=== PATIENT | female | born 1960 | race African-American/Black ===

== ENCOUNTER 2022-10-25 18:03 | Inpatient (IN) | payer OTHER ==
[2022-10-25 18:42] VITALS: BMI 17.6
[2022-10-25] MEDS ORDERED: chlordiazePOXIDE HCL 25 MG CAPSULE PO PRN (20:07)
[2022-10-25] MEDS ORDERED: LOPERAMIDE HCL 2 MG CAPSULE PO PRN (20:07)
[2022-10-25] MEDS ORDERED: IBUPROFEN 400 MG TABLET (FP) PO PRN (20:07)
[2022-10-25] MEDS ORDERED: methaDONE HCL 10 MG TABLET (FOR DETOX USE ONLY) PO ONE (20:07)
[2022-10-25] MEDS ORDERED: BISMUTH SUBSALICYLATE 524 MG/30 ML PO PRN (20:07)
[2022-10-25] MEDS ORDERED: MAG HYDROX/AL HYDROX/SIMETH 30 ML UNIT-DOSE CUP PO PRN (20:07)
[2022-10-25] MEDS ORDERED: POLYETHYLENE GLYCOL (HEALTHYLAX) 3350 17 GM PACKET PO PRN (20:07)
[2022-10-25] MEDS ORDERED: ONDANSETRON *ODT* 4 MG TABLET SL PRN (20:07)
[2022-10-25] MEDS ORDERED: hydrOXYzine PAMOATE 25 MG CAPSULE (FP) PO PRN (20:07)
[2022-10-25] MEDS ORDERED: IBUPROFEN 600 MG TABLET (FP) PO PRN (20:07)
[2022-10-25] MEDS ORDERED: NALOXONE HCL (KLOXXADO) 8 MG SPRAY NS PRN (20:07)
[2022-10-25] MEDS ORDERED: ACETAMINOPHEN 325 MG TABLET (FP) PO PRN ×2 (20:07)
[2022-10-25] MEDS ORDERED: NICOTINE 10 MG CARTRIDGE (INHALER) IH PRN (20:07)
[2022-10-25] MEDS ORDERED: DICYCLOMINE HCL 10 MG CAPSULE PO PRN (20:07)
[2022-10-25] MEDS ORDERED: MAGNESIUM HYDROX 2400MG/30ML ORAL SUSPENSION 30 ML CUP PO PRN (20:07)
[2022-10-25] MEDS ORDERED: BENZOCAINE/MENTHOL (CHLORASEPTIC ) LOZENGE MM PRN (20:07)
[2022-10-25] MEDS ORDERED: methaDONE HCL 10 MG TABLET (FOR DETOX USE ONLY) ONE (20:23)
[2022-10-25] MEDS ORDERED: cloNIDine HCL 0.1 MG TABLET ONE (20:35)
[2022-10-25] MEDS: cloNIDine HCL 0.1 MG TABLET PO PRN (20:50)
[2022-10-25] MEDS: MELATONIN 5 MG TABLETS PO SCH (22:35)
[2022-10-25] MEDS: THIAMINE HCL 100 MG TABLET (FP) PO SCH (22:35)
[2022-10-25] MEDS: METHOCARBAMOL 500 MG TABLET PO PRN (22:36)
[2022-10-25] MEDS: chlordiazePOXIDE HCL 25 MG CAPSULE PO SCH (22:36)
[2022-10-26] MEDS: chlordiazePOXIDE HCL 25 MG CAPSULE PO SCH ×4 (06:00→22:51)
[2022-10-26] MEDS: PRENATAL VITAMINS W/ FOLIC ACID TABLET (FP) PO SCH (10:20)
[2022-10-26] MEDS: cloNIDine HCL 0.1 MG TABLET PO PRN (20:51)
[2022-10-26] MEDS: MELATONIN 5 MG TABLETS PO SCH (22:50)
[2022-10-26] MEDS: METHOCARBAMOL 500 MG TABLET PO PRN (22:51)
[2022-10-26] MEDS: THIAMINE HCL 100 MG TABLET (FP) PO SCH (22:51)
[2022-10-27] MEDS: chlordiazePOXIDE HCL 25 MG CAPSULE PO SCH ×4 (05:43→22:35)
[2022-10-27] MEDS: cloNIDine HCL 0.1 MG TABLET PO PRN ×2 (07:40→22:34)
[2022-10-27] MEDS ORDERED: methaDONE HCL 10 MG TABLET (FOR DETOX USE ONLY) PO ONE (10:00)
[2022-10-27] MEDS: PRENATAL VITAMINS W/ FOLIC ACID TABLET (FP) PO SCH (10:11)
[2022-10-27 12:20] LABS: HEMATOCRIT 34.6 % (32.4-45.2); HEMOGLOBIN 11.7 GM/dL (10.7-15.3); MCHC 33.9 g/dl (32.0-36.0); MEAN CELL VOLUME 94.4 fl (80-96); MEAN PLT VOLUME 9.3 fl (7.5-11.1); PLATELET COUNT 193 10^3/uL (134-434); RBC 3.66 M/mm3 (3.60-5.2); RDW 12.4 % (11.6-15.6); WHITE BLOOD COUNT 3.7 K/mm3 (4.0-10.0)
[2022-10-27 12:47] LABS: CALCIUM 8.9 mg/dL (8.5-10.1)
[2022-10-27 12:48] LABS: ALBUMIN 2.6 g/dl (3.4-5.0); BLOOD UREA NITROGEN 21.7 mg/dL (7-18)
[2022-10-27 12:51] LABS: CREATININE 1.2 mg/dL (0.55-1.3)
[2022-10-27 12:52] LABS: BILIRUBIN,TOTAL 0.3 mg/dL (0.2-1); TOT PROT 6.4 g/dl (6.4-8.2)
[2022-10-27] MEDS: MELATONIN 5 MG TABLETS PO SCH (22:34)
[2022-10-27] MEDS: METHOCARBAMOL 500 MG TABLET PO PRN (22:34)
[2022-10-27] MEDS: THIAMINE HCL 100 MG TABLET (FP) PO SCH (22:34)
[2022-10-28] MEDS: chlordiazePOXIDE HCL 10 MG CAPSULE PO SCH ×3 (07:35→17:58)
[2022-10-28] MEDS: PRENATAL VITAMINS W/ FOLIC ACID TABLET (FP) PO SCH (09:57)
[2022-10-28] MEDS ORDERED: cloNIDine HCL 0.1 MG TABLET PO ONE ×2 (11:00→17:59)
[2022-10-28] MEDS: amLODIPine BESYLATE 5 MG TABLET (FP) PO SCH (14:35)
[2022-10-28 15:11] LABS: URINE APPEARANCE CLEAR; URINE BILIRUBIN NEGATIVE (NEGATIVE); URINE COLOR YELLOW; URINE GLUCOSE (UA) NEGATIVE (NEGATIVE); URINE KETONE NEGATIVE (NEGATIVE); URINE LEUK ESTERASE NEGATIVE (NEGATIVE); URINE NITRITE NEGATIVE (NEGATIVE); URINE PROTEIN NEGATIVE (NEGATIVE); URINE UROBILINOGEN 0.2 mg/dL (0.2-1.0)
[2022-10-28] MEDS ORDERED: chlordiazePOXIDE HCL 10 MG CAPSULE PO PRN ×2 (19:58)
[2022-10-28] MEDS: THIAMINE HCL 100 MG TABLET (FP) PO SCH (22:44)
[2022-10-29] MEDS ORDERED: OXYMETAZOLINE 0.05% NASAL SOLUTION 15 ML BOTTLE NS PRN (00:42)
[2022-10-29] MEDS ORDERED: chlordiazePOXIDE HCL 10 MG CAPSULE PO SCH (05:00)
[2022-10-29] MEDS: PRENATAL VITAMINS W/ FOLIC ACID TABLET (FP) PO SCH (09:45)
[2022-10-29] MEDS: amLODIPine BESYLATE 5 MG TABLET (FP) PO SCH (09:45)
[2022-10-29] MEDS ORDERED: methaDONE HCL 10 MG TABLET (FOR DETOX USE ONLY) PO ONE (10:00)
[2022-10-29 14:57] LABS: HEMATOCRIT 31.8 % (32.4-45.2); HEMOGLOBIN 10.6 GM/dL (10.7-15.3); MCH 31.6 pg (25.7-33.7); MCHC 33.3 g/dl (32.0-36.0); MEAN CELL VOLUME 94.8 fl (80-96); MEAN PLT VOLUME 9.8 fl (7.5-11.1); PLATELET COUNT 173 10^3/uL (134-434); RBC 3.36 M/mm3 (3.60-5.2); RDW 12.5 % (11.6-15.6); WHITE BLOOD COUNT 7.9 K/mm3 (4.0-10.0)
[2022-10-29 15:09] LABS: CALCIUM 9.5 mg/dL (8.5-10.1)
[2022-10-29 15:10] LABS: ALBUMIN 2.7 g/dl (3.4-5.0); BLOOD UREA NITROGEN 18.1 mg/dL (7-18)
[2022-10-29 15:12] LABS: CREATININE 1.3 mg/dL (0.55-1.3)
[2022-10-29 15:14] LABS: BILIRUBIN,TOTAL 0.8 mg/dL (0.2-1); TOT PROT 6.6 g/dl (6.4-8.2)
[2022-10-29 16:08] VITALS: PULSE 83
[2022-10-29 16:39] VITALS: BP 152/92; RESP 22; TEMP 101.3
[2022-10-29] MEDS: THIAMINE HCL 100 MG TABLET (FP) PO SCH (22:46)
[2022-10-30] MEDS ORDERED: chlordiazePOXIDE HCL 10 MG CAPSULE PO ONE (05:00)
== END 2022-10-29 23:51 | disposition short-term general hospital (02) | DRG 773 ==
LOC: SUATTDRO 18:03 → YASAS 18:03 → Y3N 20:23
PROVIDERS: ADMIT Allergy & Immunology; ATTEND Surgery
PROC: HZ2ZZZZ Detoxification Services for Substance Abuse Treatment (ICD-10-PCS; principal; 2022-10-25)
DX: F11.23 Opioid dependence with withdrawal (principal); F10.230 Alcohol dependence with withdrawal, uncomplicated; F14.20 Cocaine dependence, uncomplicated; F17.210 Nicotine dependence, cigarettes, uncomplicated; F19.24 Other psychoactive substance dependence with psychoactive substance-induced mood disorder; F41.8 Other specified anxiety disorders; I10 Essential (primary) hypertension; R41.82 Altered mental status, unspecified; R05.9 Cough, unspecified; R06.02 Shortness of breath; R74.8 Abnormal levels of other serum enzymes
CPT/HCPCS: 36415; 80053; 81003; 82140; 85027; 86593; 86780; 87811; 93005; 93010; C9803-CS; U0003; U0005

== ENCOUNTER 2022-10-29 17:24 | Inpatient (IN) | payer OTHER ==
[2022-10-29] MEDS ORDERED: PENICILLIN G BENZATHINE 2,400,000 UNIT/4 ML PFS IM ONE (17:45)
[2022-10-29] MEDS ORDERED: PIPERACILLIN/TAZOB 4.5 GM 4.5 GM in DEXTROSE 5%-WATER 100 ML IVPB ONE (18:03)
[2022-10-29] MEDS ORDERED: VANCOMYCIN 1 GM in D5W (PRE-DOCKED) 1,000 MG/250 ML IVPB ONE (18:03)
[2022-10-29] MEDS ORDERED: AZITHROMYCIN IVPB 500 MG in DEXTROSE 5%-WATER - 250 ML IVPB ONE (18:04)
[2022-10-29] MEDS ORDERED: PIPERACILLIN/TAZOB 4.5 GM 4.5 GM/100 ML BAG IVPB ONE (18:18)
[2022-10-29] MEDS ORDERED: LACTATED RINGERS SOLUTION 1000 ML INFUS.BAG IV ONE (18:18)
[2022-10-29] MEDS ORDERED: ACETAMINOPHEN 1000 MG/100 ML BAG IVPB ONE (18:29)
[2022-10-29 18:33] LABS: VENOUS BASE EXCESS 6.1 mmol/L (-2-2); VENOUS O2 SATURATION 80.7 % (70-80); VENOUS PCO2 47.8 mmHg (38-52); VENOUS PH 7.434 (7.310-7.410)
[2022-10-29 18:44] LABS: BASO % 0.2 % (0-2.0); EOS % 1.5 % (0-4.5); HEMATOCRIT 32.8 % (32.4-45.2); HEMOGLOBIN 10.8 GM/dL (10.7-15.3); LYMPH % 17.4 % (8-40); MCH 30.5 pg (25.7-33.7); MCHC 32.9 g/dl (32.0-36.0); MEAN CELL VOLUME 92.7 fl (80-96); MONO % 9.6 % (3.8-10.2); NEUT % 71.3 % (42.8-82.8); PLATELET COUNT 158 10^3/uL (134-434); RBC 3.54 M/mm3 (3.60-5.2); RDW 12.6 % (11.6-15.6); WHITE BLOOD COUNT 6.8 K/mm3 (4.0-10.0)
[2022-10-29] MEDS ORDERED: AZITHROMYCIN IVPB 500 MG/250 ML BAG IVPB ONE (18:47)
[2022-10-29] MEDS ORDERED: ACETAMINOPHEN INJECTION 100 ML IVPB ONE (18:47)
[2022-10-29] MEDS ORDERED: PENICILLIN G BENZATHINE 2,400,000 UNIT/4 ML PFS ONE (18:48)
[2022-10-29 18:51] LABS: INR 1.02 (0.83-1.09); PROTHROMBIN TIME (PATIENT) 11.8 SEC (9.7-13.0)
[2022-10-29 18:54] LABS: ACTIVATED PTT 36.4 SECONDS (25.2-36.5)
[2022-10-29 18:56] LABS: CALCIUM 9.5 mg/dL (8.5-10.1)
[2022-10-29 18:57] LABS: ALBUMIN 2.7 g/dl (3.4-5.0); BLOOD UREA NITROGEN 20.2 mg/dL (7-18)
[2022-10-29 19:00] LABS: COCAINE, UR NEGATIVE (NEGATIVE); OPIATES, URI NEGATIVE (NEGATIVE)
[2022-10-29 19:00] LABS: CREATININE 1.3 mg/dL (0.55-1.3)
[2022-10-29 19:01] LABS: METHADONE, UR NEGATIVE (NEGATIVE); PHENCYCLIDINE,URINE NEGATIVE (NEGATIVE)
[2022-10-29 19:01] LABS: BILIRUBIN,TOTAL 0.6 mg/dL (0.2-1); TOT PROT 6.5 g/dl (6.4-8.2)
[2022-10-29 19:08] LABS: N-TERMINAL BNP 4308.2 pg/ml (5-125)
[2022-10-29 19:12] LABS: URINE AMPHETAMINES NEGATIVE (NEGATIVE); URINE BARBITURATES NEGATIVE (NEGATIVE); URINE BENZODIAZEPINES POSITIVE (NEGATIVE)
[2022-10-29 19:33] LABS: PH,URINE 8.5 (5.0-8.0); URINE APPEARANCE CLEAR; URINE BILIRUBIN NEGATIVE (NEGATIVE); URINE COLOR YELLOW; URINE GLUCOSE (UA) NEGATIVE (NEGATIVE); URINE KETONE NEGATIVE (NEGATIVE); URINE LEUK ESTERASE NEGATIVE (NEGATIVE); URINE NITRITE NEGATIVE (NEGATIVE); URINE PROTEIN NEGATIVE (NEGATIVE); URINE UROBILINOGEN 0.2 mg/dL (0.2-1.0)
[2022-10-29] MEDS ORDERED: VANCOMYCIN/WATER FOR INJ (PEG) 1,000 MG/200 ML BAG IVPB ONE (20:08)
[2022-10-29 21:56] LABS: PHOSPHOROUS 2.3 mg/dL (2.5-4.9)
[2022-10-30] MEDS ORDERED: LORazepam 2 MG/ML SDV VIAL IVPUSH PRN (01:16)
[2022-10-30 07:40] LABS: BLOOD UREA NITROGEN 23.6 mg/dL (7-18)
[2022-10-30 07:41] LABS: CALCIUM 9.5 mg/dL (8.5-10.1); MAGNESIUM 2.1 mg/dL (1.8-2.4)
[2022-10-30 07:42] LABS: PHOSPHOROUS 3.7 mg/dL (2.5-4.9)
[2022-10-30 07:43] LABS: CREATININE 1.2 mg/dL (0.55-1.3)
[2022-10-30 07:44] LABS: TOT PROT 7.1 g/dl (6.4-8.2)
[2022-10-30 07:45] LABS: ALBUMIN 2.8 g/dl (3.4-5.0)
[2022-10-30 07:49] LABS: BILIRUBIN,TOTAL 0.7 mg/dL (0.2-1)
[2022-10-30 08:23] LABS: HEMATOCRIT 32.7 % (32.4-45.2); HEMOGLOBIN 10.8 GM/dL (10.7-15.3); MCH 31.5 pg (25.7-33.7); MCHC 33.1 g/dl (32.0-36.0); MEAN CELL VOLUME 95.3 fl (80-96); MEAN PLT VOLUME 9.6 fl (7.5-11.1); PLATELET COUNT 168 10^3/uL (134-434); RBC 3.44 M/mm3 (3.60-5.2); RDW 12.7 % (11.6-15.6); WHITE BLOOD COUNT 6.2 K/mm3 (4.0-10.0)
[2022-10-30] MEDS ORDERED: PIPERACILLIN/TAZOB 3.375 GM 3.375 GM in DEXTROSE 5%-WATER - 50 ML IVPB SCH ×2 (09:00→15:00)
[2022-10-30] MEDS ORDERED: FOLIC ACID 1 MG TABLET (FP) PO SCH (10:00)
[2022-10-30] MEDS ORDERED: ENOXAPARIN NA (PORCINE) 40 MG/0.4 ML DISP.SYRIN SQ SCH (10:00)
[2022-10-30] MEDS ORDERED: THIAMINE HCL 100 MG TABLET (FP) PO SCH (10:00)
[2022-10-30] MEDS: FUROSEMIDE 40 MG/4 ML INJECTABLE VIAL IVPUSH SCH ×2 (10:52→11:01)
[2022-10-30] MEDS: ALBUTEROL SO4 2.5/IPRATROPIUM 0.5 INH SOL 3 ML VIAL.NEB. NEB SCH ×2 (14:01→20:00)
[2022-10-30] MEDS: DOXYCYCLINE INJECTION 100 MG in DEXTROSE 5%-WATER 100 ML IVPB SCH ×2 (14:21→21:12)
[2022-10-30] MEDS ORDERED: AZITHROMYCIN IVPB 250 MG in DEXTROSE 5%-WATER - 250 ML IVPB SCH (15:00)
[2022-10-30] MEDS ORDERED: amLODIPine BESYLATE 5 MG TABLET (FP) PO SCH (15:15)
[2022-10-30] MEDS ORDERED: ACETAMINOPHEN 325 MG TABLET (FP) PO PRN (15:49)
[2022-10-30] MEDS: CEFTRIAXONE 1 GM in DEXTROSE 5%-WATER - 50 ML IVPB SCH (15:50)
[2022-10-30] MEDS ORDERED: amLODIPine BESYLATE 2.5 MG TABLET (FP) PO SCH (16:35)
[2022-10-30] MEDS ORDERED: POLYETHYLENE GLYCOL (HEALTHYLAX) 3350 17 GM PACKET PO PRN (17:11)
[2022-10-30] MEDS ORDERED: SODIUM CHLORIDE 1,000 ML IV SCH (17:15)
[2022-10-30] MEDS ORDERED: VANCOMYCIN 1 GM/200 ML PREMIX BAG (RESTRICTED TO ID ONLY) IVPB SCH ×2 (21:00)
[2022-10-31 07:44] LABS: BASO % 0.6 % (0-2.0); EOS % 2.5 % (0-4.5); HEMATOCRIT 33.4 % (32.4-45.2); HEMOGLOBIN 11.1 GM/dL (10.7-15.3); LYMPH % 24.7 % (8-40); MCH 30.9 pg (25.7-33.7); MCHC 33.2 g/dl (32.0-36.0); MEAN CELL VOLUME 93.2 fl (80-96); MEAN PLT VOLUME 9.3 fl (7.5-11.1); MONO % 8.6 % (3.8-10.2); NEUT % 63.6 % (42.8-82.8); PLATELET COUNT 176 10^3/uL (134-434); RBC 3.59 M/mm3 (3.60-5.2); RDW 12.7 % (11.6-15.6); WHITE BLOOD COUNT 5.2 K/mm3 (4.0-10.0)
[2022-10-31 08:10] LABS: ALBUMIN 2.6 g/dl (3.4-5.0); CALCIUM 8.9 mg/dL (8.5-10.1)
[2022-10-31 08:11] LABS: BLOOD UREA NITROGEN 25.8 mg/dL (7-18); MAGNESIUM 2.1 mg/dL (1.8-2.4)
[2022-10-31] MEDS: ALBUTEROL SO4 2.5/IPRATROPIUM 0.5 INH SOL 3 ML VIAL.NEB. NEB SCH ×3 (08:11→20:13)
[2022-10-31 08:13] LABS: CREATININE 1.3 mg/dL (0.55-1.3); PHOSPHOROUS 4.7 mg/dL (2.5-4.9)
[2022-10-31 08:14] LABS: BILIRUBIN,TOTAL 0.5 mg/dL (0.2-1)
[2022-10-31] MEDS: CEFTRIAXONE 1 GM in DEXTROSE 5%-WATER - 50 ML IVPB SCH (10:13)
[2022-10-31] MEDS: DOXYCYCLINE INJECTION 100 MG in DEXTROSE 5%-WATER 100 ML IVPB SCH (10:14)
[2022-10-31] MEDS: FOLIC ACID 1 MG TABLET (FP) PO SCH (10:15)
[2022-10-31] MEDS: ENOXAPARIN NA (PORCINE) 40 MG/0.4 ML DISP.SYRIN SQ SCH (10:15)
[2022-10-31] MEDS: DOCUSATE SODIUM 100 MG CAPSULE (FP) PO SCH (10:15)
[2022-10-31] MEDS: amLODIPine BESYLATE 2.5 MG TABLET (FP) PO ONE ×2 (10:16→10:35)
[2022-10-31] MEDS: THIAMINE HCL 100 MG TABLET (FP) PO SCH (10:16)
[2022-10-31] MEDS ORDERED: VANCOMYCIN 1 GM/200 ML PREMIX BAG (RESTRICTED TO ID ONLY) IVPB ONE (11:23)
[2022-10-31] MEDS ORDERED: amLODIPine BESYLATE 5 MG TABLET (FP) PO SCH (11:35)
[2022-10-31] MEDS: MAG HYDROX/AL HYDROX/SIMETH 30 ML UNIT-DOSE CUP PO SCH (17:18)
[2022-10-31] MEDS ORDERED: VANCOMYCIN 1 GM/200 ML PREMIX BAG (RESTRICTED TO ID ONLY) IVPB SCH ×2 (21:00)
[2022-11-01] MEDS: MAG HYDROX/AL HYDROX/SIMETH 30 ML UNIT-DOSE CUP PO SCH ×4 (00:04→23:11)
[2022-11-01] MEDS: DOXYCYCLINE INJECTION 100 MG in DEXTROSE 5%-WATER 100 ML IVPB SCH ×2 (00:04→10:46)
[2022-11-01] MEDS: ALBUTEROL SO4 2.5/IPRATROPIUM 0.5 INH SOL 3 ML VIAL.NEB. NEB SCH ×2 (08:25→14:40)
[2022-11-01 09:02] LABS: BASO % 0.6 % (0-2.0); EOS % 3.9 % (0-4.5); HEMATOCRIT 34.5 % (32.4-45.2); HEMOGLOBIN 11.3 GM/dL (10.7-15.3); LYMPH % 29.1 % (8-40); MCH 30.4 pg (25.7-33.7); MCHC 32.8 g/dl (32.0-36.0); MEAN CELL VOLUME 92.6 fl (80-96); MEAN PLT VOLUME 8.7 fl (7.5-11.1); MONO % 9.7 % (3.8-10.2); NEUT % 56.7 % (42.8-82.8); PLATELET COUNT 207 10^3/uL (134-434); RBC 3.72 M/mm3 (3.60-5.2); RDW 12.7 % (11.6-15.6); WHITE BLOOD COUNT 4.1 K/mm3 (4.0-10.0)
[2022-11-01 09:27] LABS: ALBUMIN 2.7 g/dl (3.4-5.0); BLOOD UREA NITROGEN 22.4 mg/dL (7-18); MAGNESIUM 2.2 mg/dL (1.8-2.4)
[2022-11-01 09:29] LABS: CREATININE 1.1 mg/dL (0.55-1.3); PHOSPHOROUS 4.3 mg/dL (2.5-4.9)
[2022-11-01 09:30] LABS: BILIRUBIN,TOTAL 0.4 mg/dL (0.2-1)
[2022-11-01] MEDS: ENOXAPARIN NA (PORCINE) 40 MG/0.4 ML DISP.SYRIN SQ SCH (10:46)
[2022-11-01] MEDS: CEFTRIAXONE 1 GM in DEXTROSE 5%-WATER - 50 ML IVPB SCH (10:46)
[2022-11-01] MEDS: DOCUSATE SODIUM 100 MG CAPSULE (FP) PO SCH (10:46)
[2022-11-01] MEDS: THIAMINE HCL 100 MG TABLET (FP) PO SCH (10:46)
[2022-11-01] MEDS: FOLIC ACID 1 MG TABLET (FP) PO SCH (10:46)
[2022-11-01] MEDS ORDERED: amLODIPine BESYLATE 5 MG TABLET (FP) PO ONE (15:05)
[2022-11-01] MEDS ORDERED: LOSARTAN POTASSIUM 50 MG TABLET PO ONE (15:06)
[2022-11-01] MEDS ORDERED: hydrALAZINE HCL 20 MG/ML VIAL IVPUSH PRN ×2 (16:04→17:16)
[2022-11-01] MEDS ORDERED: NICARDIPINE 25 MG in DEXTROSE 5%-WATER - 240 ML IVPB SCH ×2 (17:30→22:34)
[2022-11-01] MEDS ORDERED: POLYETHYLENE GLYCOL (HEALTHYLAX) 3350 17 GM PACKET PO PRN ×2 (17:31→22:34)
[2022-11-01] MEDS ORDERED: amLODIPine BESYLATE 2.5 MG TABLET (FP) PO ONE (17:31)
[2022-11-01] MEDS ORDERED: ACETAMINOPHEN 325 MG TABLET (FP) PO PRN ×2 (17:31→22:34)
[2022-11-01] MEDS ORDERED: MAG HYDROX/AL HYDROX/SIMETH 30 ML UNIT-DOSE CUP PO SCH (18:00)
[2022-11-01] MEDS: ENALAPRIL MALEATE 5 MG TABLET PO SCH ×2 (18:08→21:11)
[2022-11-01] MEDS ORDERED: ALBUTEROL SO4 2.5/IPRATROPIUM 0.5 INH SOL 3 ML VIAL.NEB. NEB SCH (20:00)
[2022-11-01] MEDS ORDERED: CHLORHEXIDINE GLUCONATE 4% CLEANSER FOR DECOLONIZATION TP SCH ×2 (22:00)
[2022-11-01] MEDS ORDERED: QUEtiapine FUMARATE 100 MG TABLET (FP) PO SCH (22:00)
[2022-11-01] MEDS ORDERED: cloNIDine HCL 0.1 MG TABLET PO SCH (22:00)
[2022-11-01] MEDS ORDERED: DOXYCYCLINE INJECTION 100 MG in DEXTROSE 5%-WATER 100 ML IVPB SCH (22:00)
[2022-11-01] MEDS ORDERED: MUPIROCIN 2% TOPICAL OINTMENT FOR DECOLONIZATION NS SCH (22:00)
[2022-11-01] MEDS: MUPIROCIN 2% TOPICAL OINTMENT FOR DECOLONIZATION NS SCH (22:48)
[2022-11-01] MEDS: hydrALAZINE HCL 20 MG/ML VIAL IVPUSH PRN (22:50)
[2022-11-02] MEDS: MAG HYDROX/AL HYDROX/SIMETH 30 ML UNIT-DOSE CUP PO SCH ×5 (05:19→23:22)
[2022-11-02 07:43] LABS: BASO % 0.6 % (0-2.0); EOS % 0.1 % (0-4.5); HEMATOCRIT 39.6 % (32.4-45.2); HEMOGLOBIN 13.3 GM/dL (10.7-15.3); LYMPH % 19.3 % (8-40); MCHC 33.7 g/dl (32.0-36.0); MEAN CELL VOLUME 92.1 fl (80-96); MEAN PLT VOLUME 8.6 fl (7.5-11.1); PLATELET COUNT 282 10^3/uL (134-434); RDW 12.7 % (11.6-15.6); WHITE BLOOD COUNT 7.4 K/mm3 (4.0-10.0)
[2022-11-02] MEDS ORDERED: ALBUTEROL SO4 2.5/IPRATROPIUM 0.5 INH SOL 3 ML VIAL.NEB. NEB SCH (08:00)
[2022-11-02 08:04] LABS: CALCIUM 9.2 mg/dL (8.5-10.1)
[2022-11-02 08:05] LABS: ALBUMIN 3.1 g/dl (3.4-5.0); BLOOD UREA NITROGEN 28.8 mg/dL (7-18); MAGNESIUM 2.5 mg/dL (1.8-2.4)
[2022-11-02 08:07] LABS: CREATININE 1.2 mg/dL (0.55-1.3)
[2022-11-02 08:08] LABS: PHOSPHOROUS 4.8 mg/dL (2.5-4.9)
[2022-11-02 08:09] LABS: TOT PROT 8.2 g/dl (6.4-8.2)
[2022-11-02 08:11] LABS: BILIRUBIN,TOTAL 0.5 mg/dL (0.2-1)
[2022-11-02] MEDS ORDERED: chlordiazePOXIDE HCL 10 MG CAPSULE PO PRN (09:17)
[2022-11-02] MEDS ORDERED: FOLIC ACID 1 MG TABLET (FP) PO SCH ×2 (10:00)
[2022-11-02] MEDS ORDERED: THIAMINE HCL 100 MG TABLET (FP) PO SCH ×2 (10:00)
[2022-11-02] MEDS ORDERED: cloNIDine HCL 0.1 MG TABLET PO SCH (10:00)
[2022-11-02] MEDS ORDERED: amLODIPine BESYLATE 10 MG TABLET (FP) PO SCH ×3 (10:00)
[2022-11-02] MEDS ORDERED: ENOXAPARIN NA (PORCINE) 40 MG/0.4 ML DISP.SYRIN SQ SCH ×2 (10:00)
[2022-11-02] MEDS: FUROSEMIDE 40 MG/4 ML INJECTABLE VIAL IVPUSH SCH (10:00)
[2022-11-02] MEDS ORDERED: ENALAPRIL MALEATE 5 MG TABLET PO SCH (10:00)
[2022-11-02] MEDS ORDERED: DOXYCYCLINE INJECTION 100 MG in DEXTROSE 5%-WATER 100 ML IVPB SCH (10:00)
[2022-11-02] MEDS ORDERED: CEFTRIAXONE 1 GM in DEXTROSE 5%-WATER - 50 ML IVPB SCH (10:00)
[2022-11-02] MEDS ORDERED: MUPIROCIN 2% TOPICAL OINTMENT FOR DECOLONIZATION NS SCH ×2 (10:00→22:00)
[2022-11-02] MEDS ORDERED: DOCUSATE SODIUM 100 MG CAPSULE (FP) PO SCH ×2 (10:00)
[2022-11-02] MEDS ORDERED: ENALAPRIL MALEATE 10 MG TABLET PO SCH (10:00)
[2022-11-02] MEDS: MUPIROCIN 2% TOPICAL OINTMENT FOR DECOLONIZATION NS SCH (10:01)
[2022-11-02] MEDS: hydrALAZINE HCL 20 MG/ML VIAL IVPUSH PRN (10:57)
[2022-11-02] MEDS ORDERED: ACETAMINOPHEN 325 MG TABLET (FP) PO PRN (11:36)
[2022-11-02] MEDS ORDERED: hydrALAZINE HCL 20 MG/ML VIAL IVPUSH PRN (11:36)
[2022-11-02] MEDS ORDERED: POLYETHYLENE GLYCOL (HEALTHYLAX) 3350 17 GM PACKET PO PRN (11:36)
[2022-11-02] MEDS: ALBUTEROL SO4 2.5/IPRATROPIUM 0.5 INH SOL 3 ML VIAL.NEB. NEB SCH ×2 (14:24→20:01)
[2022-11-02] MEDS: cloNIDine HCL 0.1 MG TABLET PO SCH (21:43)
[2022-11-02] MEDS: ENALAPRIL MALEATE 10 MG TABLET PO SCH (21:43)
[2022-11-02] MEDS: QUEtiapine FUMARATE 100 MG TABLET (FP) PO SCH (21:43)
[2022-11-02] MEDS: DOXYCYCLINE INJECTION 100 MG in DEXTROSE 5%-WATER 100 ML IVPB SCH (21:44)
[2022-11-02 21:52] LABS: OPIATES, URI NEGATIVE (NEGATIVE); PHENCYCLIDINE,URINE NEGATIVE (NEGATIVE); URINE BARBITURATES NEGATIVE (NEGATIVE)
[2022-11-02 21:53] LABS: URINE AMPHETAMINES NEGATIVE (NEGATIVE)
[2022-11-02] MEDS ORDERED: CHLORHEXIDINE GLUCONATE 4% CLEANSER FOR DECOLONIZATION TP SCH ×2 (22:00)
[2022-11-02 22:02] LABS: COCAINE, UR NEGATIVE (NEGATIVE)
[2022-11-02 22:04] LABS: METHADONE, UR POSITIVE (NEGATIVE); URINE BENZODIAZEPINES POSITIVE (NEGATIVE)
[2022-11-03] MEDS: MAG HYDROX/AL HYDROX/SIMETH 30 ML UNIT-DOSE CUP PO SCH ×4 (05:59→23:41)
[2022-11-03] MEDS: ALBUTEROL SO4 2.5/IPRATROPIUM 0.5 INH SOL 3 ML VIAL.NEB. NEB SCH ×3 (08:05→20:25)
[2022-11-03 09:00] LABS: BASO % 0.6 % (0-2.0); EOS % 2.1 % (0-4.5); HEMATOCRIT 41.3 % (32.4-45.2); HEMOGLOBIN 13.5 GM/dL (10.7-15.3); MCH 30.5 pg (25.7-33.7); MCHC 32.7 g/dl (32.0-36.0); MEAN CELL VOLUME 93.3 fl (80-96); MEAN PLT VOLUME 7.9 fl (7.5-11.1); MONO % 9.6 % (3.8-10.2); NEUT % 41.7 % (42.8-82.8); PLATELET COUNT 273 10^3/uL (134-434); RBC 4.42 M/mm3 (3.60-5.2); RDW 12.7 % (11.6-15.6); WHITE BLOOD COUNT 5.4 K/mm3 (4.0-10.0)
[2022-11-03 09:45] LABS: PHOSPHOROUS 6.1 mg/dL (2.5-4.9)
[2022-11-03 09:46] LABS: TOT PROT 7.8 g/dl (6.4-8.2)
[2022-11-03 09:48] LABS: BILIRUBIN,TOTAL 0.4 mg/dL (0.2-1); MAGNESIUM 2.7 mg/dL (1.8-2.4)
[2022-11-03 09:55] LABS: BLOOD UREA NITROGEN 55.9 mg/dL (7-18)
[2022-11-03] MEDS: FOLIC ACID 1 MG TABLET (FP) PO SCH (10:23)
[2022-11-03] MEDS: DOCUSATE SODIUM 100 MG CAPSULE (FP) PO SCH (10:23)
[2022-11-03] MEDS: THIAMINE HCL 100 MG TABLET (FP) PO SCH (10:24)
[2022-11-03] MEDS: amLODIPine BESYLATE 10 MG TABLET (FP) PO SCH (10:24)
[2022-11-03] MEDS: FUROSEMIDE 40 MG/4 ML INJECTABLE VIAL IVPUSH SCH (10:25)
[2022-11-03] MEDS: ENOXAPARIN NA (PORCINE) 40 MG/0.4 ML DISP.SYRIN SQ SCH (10:25)
[2022-11-03] MEDS: CEFTRIAXONE 1 GM in DEXTROSE 5%-WATER - 50 ML IVPB SCH (10:25)
[2022-11-03] MEDS: ENALAPRIL MALEATE 10 MG TABLET PO SCH ×2 (10:26→21:56)
[2022-11-03] MEDS: cloNIDine HCL 0.1 MG TABLET PO SCH ×2 (10:26→21:56)
[2022-11-03] MEDS: DOXYCYCLINE INJECTION 100 MG in DEXTROSE 5%-WATER 100 ML IVPB SCH ×2 (12:35→22:40)
[2022-11-03] MEDS: QUEtiapine FUMARATE 100 MG TABLET (FP) PO SCH (21:55)
[2022-11-04] MEDS: MAG HYDROX/AL HYDROX/SIMETH 30 ML UNIT-DOSE CUP PO SCH ×3 (06:52→18:25)
[2022-11-04] MEDS: ALBUTEROL SO4 2.5/IPRATROPIUM 0.5 INH SOL 3 ML VIAL.NEB. NEB SCH ×3 (08:21→21:25)
[2022-11-04] MEDS: DOCUSATE SODIUM 100 MG CAPSULE (FP) PO SCH (09:10)
[2022-11-04] MEDS: ENOXAPARIN NA (PORCINE) 40 MG/0.4 ML DISP.SYRIN SQ SCH (09:11)
[2022-11-04] MEDS: FOLIC ACID 1 MG TABLET (FP) PO SCH (09:11)
[2022-11-04] MEDS: THIAMINE HCL 100 MG TABLET (FP) PO SCH (09:11)
[2022-11-04] MEDS: CEFTRIAXONE 1 GM in DEXTROSE 5%-WATER - 50 ML IVPB SCH (09:15)
[2022-11-04] MEDS: FUROSEMIDE 40 MG/4 ML INJECTABLE VIAL IVPUSH SCH (09:59)
[2022-11-04] MEDS: cloNIDine HCL 0.1 MG TABLET PO SCH ×2 (09:59→21:56)
[2022-11-04] MEDS: ENALAPRIL MALEATE 10 MG TABLET PO SCH (10:00)
[2022-11-04] MEDS: amLODIPine BESYLATE 10 MG TABLET (FP) PO SCH (10:00)
[2022-11-04 10:21] LABS: CALCIUM 8.2 mg/dL (8.5-10.1); MAGNESIUM 2.8 mg/dL (1.8-2.4)
[2022-11-04 10:23] LABS: BASO % 0.6 % (0-2.0); EOS % 2.3 % (0-4.5); HEMATOCRIT 35.9 % (32.4-45.2); HEMOGLOBIN 11.7 GM/dL (10.7-15.3); LYMPH % 28.1 % (8-40); MCH 30.5 pg (25.7-33.7); MCHC 32.5 g/dl (32.0-36.0); MEAN CELL VOLUME 93.9 fl (80-96); MEAN PLT VOLUME 8.8 fl (7.5-11.1); PLATELET COUNT 232 10^3/uL (134-434); RBC 3.82 M/mm3 (3.60-5.2); RDW 12.8 % (11.6-15.6); WHITE BLOOD COUNT 7.2 K/mm3 (4.0-10.0)
[2022-11-04 10:25] LABS: BILIRUBIN,TOTAL 0.3 mg/dL (0.2-1); CREATININE 2.3 mg/dL (0.55-1.3); TOT PROT 7.3 g/dl (6.4-8.2)
[2022-11-04] MEDS: SODIUM CHLORIDE 0.45% 1,000 ML IV SCH (13:04)
[2022-11-04] MEDS: AMINO ACIDS/PROTEIN HYDROLYS 30 ML LIQUID.PKT PO SCH (18:25)
[2022-11-04] MEDS: HEPARIN NA (PORCINE) 5,000 UNITS/ML 1ML VIAL SQ SCH (21:55)
[2022-11-04] MEDS: QUEtiapine FUMARATE 100 MG TABLET (FP) PO SCH (21:56)
[2022-11-05] MEDS: MAG HYDROX/AL HYDROX/SIMETH 30 ML UNIT-DOSE CUP PO SCH ×4 (01:31→17:47)
[2022-11-05] MEDS: HEPARIN NA (PORCINE) 5,000 UNITS/ML 1ML VIAL SQ SCH ×3 (05:53→22:10)
[2022-11-05] MEDS: ALBUTEROL SO4 2.5/IPRATROPIUM 0.5 INH SOL 3 ML VIAL.NEB. NEB SCH ×3 (08:10→20:15)
[2022-11-05 09:04] LABS: BASO % 0.5 % (0-2.0); EOS % 4.1 % (0-4.5); HEMATOCRIT 33.1 % (32.4-45.2); HEMOGLOBIN 10.8 GM/dL (10.7-15.3); LYMPH % 29.5 % (8-40); MCH 30.4 pg (25.7-33.7); MCHC 32.8 g/dl (32.0-36.0); MEAN CELL VOLUME 92.9 fl (80-96); MEAN PLT VOLUME 8.5 fl (7.5-11.1); MONO % 17.1 % (3.8-10.2); NEUT % 48.8 % (42.8-82.8); PLATELET COUNT 245 10^3/uL (134-434); RBC 3.56 M/mm3 (3.60-5.2); RDW 12.5 % (11.6-15.6); WHITE BLOOD COUNT 5.3 K/mm3 (4.0-10.0)
[2022-11-05 09:38] LABS: BLOOD UREA NITROGEN 70.2 mg/dL (7-18); CALCIUM 8.4 mg/dL (8.5-10.1); MAGNESIUM 2.8 mg/dL (1.8-2.4)
[2022-11-05 09:41] LABS: CREATININE 1.5 mg/dL (0.55-1.3)
[2022-11-05 09:42] LABS: BILIRUBIN,TOTAL 0.4 mg/dL (0.2-1); TOT PROT 7.3 g/dl (6.4-8.2)
[2022-11-05] MEDS ORDERED: PENICILLIN G BENZATHINE 2,400,000 UNIT/4 ML PFS IM SCH (10:00)
[2022-11-05] MEDS ORDERED: methaDONE HCL 10 MG TABLET PO ONE (10:00)
[2022-11-05] MEDS: amLODIPine BESYLATE 10 MG TABLET (FP) PO SCH (10:01)
[2022-11-05] MEDS: DOCUSATE SODIUM 100 MG CAPSULE (FP) PO SCH (10:01)
[2022-11-05] MEDS: THIAMINE HCL 100 MG TABLET (FP) PO SCH (10:01)
[2022-11-05] MEDS: cloNIDine HCL 0.1 MG TABLET PO SCH ×2 (10:01→22:10)
[2022-11-05] MEDS: AMINO ACIDS/PROTEIN HYDROLYS 30 ML LIQUID.PKT PO SCH ×2 (10:02→17:47)
[2022-11-05] MEDS: CEFTRIAXONE 1 GM in DEXTROSE 5%-WATER - 50 ML IVPB SCH (10:02)
[2022-11-05] MEDS: FOLIC ACID 1 MG TABLET (FP) PO SCH (10:02)
[2022-11-05] MEDS: SODIUM CHLORIDE 0.45% 1,000 ML IV SCH (12:47)
[2022-11-05] MEDS ORDERED: SODIUM ZIRCONIUM CYCLOSILICATE (LOKELMA) 5 GM PACKET PO SCH (13:30)
[2022-11-05 15:54] VITALS: BMI 18.4
[2022-11-05] MEDS: QUEtiapine FUMARATE 100 MG TABLET (FP) PO SCH (22:10)
[2022-11-06] MEDS: MAG HYDROX/AL HYDROX/SIMETH 30 ML UNIT-DOSE CUP PO SCH ×6 (01:35→17:31)
[2022-11-06] MEDS: HEPARIN NA (PORCINE) 5,000 UNITS/ML 1ML VIAL SQ SCH ×3 (06:23→21:58)
[2022-11-06] MEDS: SODIUM CHLORIDE 0.45% 1,000 ML IV SCH (07:17)
[2022-11-06 08:26] LABS: ALBUMIN 2.7 g/dl (3.4-5.0); BLOOD UREA NITROGEN 56.2 mg/dL (7-18); MAGNESIUM 2.7 mg/dL (1.8-2.4)
[2022-11-06 08:29] LABS: BASO % 0.7 % (0-2.0); CREATININE 1.1 mg/dL (0.55-1.3); EOS % 3.5 % (0-4.5); HEMATOCRIT 30.6 % (32.4-45.2); HEMOGLOBIN 10.1 GM/dL (10.7-15.3); LYMPH % 33.9 % (8-40); MCH 31.2 pg (25.7-33.7); MCHC 32.9 g/dl (32.0-36.0); MEAN CELL VOLUME 94.8 fl (80-96); MEAN PLT VOLUME 8.9 fl (7.5-11.1); MONO % 14.1 % (3.8-10.2); NEUT % 47.8 % (42.8-82.8); PLATELET COUNT 247 10^3/uL (134-434); RBC 3.23 M/mm3 (3.60-5.2); RDW 12.5 % (11.6-15.6); WHITE BLOOD COUNT 4.3 K/mm3 (4.0-10.0)
[2022-11-06 08:30] LABS: BILIRUBIN,TOTAL 0.5 mg/dL (0.2-1); TOT PROT 6.7 g/dl (6.4-8.2)
[2022-11-06] MEDS: ALBUTEROL SO4 2.5/IPRATROPIUM 0.5 INH SOL 3 ML VIAL.NEB. NEB SCH ×3 (08:43→20:30)
[2022-11-06] MEDS ORDERED: SODIUM ZIRCONIUM CYCLOSILICATE (LOKELMA) 5 GM PACKET PO ONE (09:23)
[2022-11-06] MEDS: amLODIPine BESYLATE 10 MG TABLET (FP) PO SCH (09:25)
[2022-11-06] MEDS: DOCUSATE SODIUM 100 MG CAPSULE (FP) PO SCH (09:25)
[2022-11-06] MEDS: FOLIC ACID 1 MG TABLET (FP) PO SCH (09:25)
[2022-11-06] MEDS: cloNIDine HCL 0.1 MG TABLET PO SCH ×2 (09:25→21:58)
[2022-11-06] MEDS: THIAMINE HCL 100 MG TABLET (FP) PO SCH (09:25)
[2022-11-06] MEDS: CEFTRIAXONE 1 GM in DEXTROSE 5%-WATER - 50 ML IVPB SCH (09:26)
[2022-11-06] MEDS: AMINO ACIDS/PROTEIN HYDROLYS 30 ML LIQUID.PKT PO SCH ×2 (09:26→17:31)
[2022-11-06] MEDS ORDERED: FUROSEMIDE 40 MG TABLET (FP) PO ONE (11:58)
[2022-11-06] MEDS ORDERED: ALBUTEROL SO4 2.5/IPRATROPIUM 0.5 INH SOL 3 ML VIAL.NEB. NEB PRN (12:45)
[2022-11-06] MEDS: QUEtiapine FUMARATE 100 MG TABLET (FP) PO SCH (21:58)
[2022-11-06 23:00] VITALS: RESP 20
[2022-11-07] MEDS: MAG HYDROX/AL HYDROX/SIMETH 30 ML UNIT-DOSE CUP PO SCH ×4 (00:16→17:23)
[2022-11-07] MEDS: HEPARIN NA (PORCINE) 5,000 UNITS/ML 1ML VIAL SQ SCH ×2 (05:57→14:38)
[2022-11-07] MEDS: ALBUTEROL SO4 2.5/IPRATROPIUM 0.5 INH SOL 3 ML VIAL.NEB. NEB SCH ×2 (08:58→15:17)
[2022-11-07 09:10] LABS: EOS % 3.5 % (0-4.5); HEMATOCRIT 30.5 % (32.4-45.2); HEMOGLOBIN 10.3 GM/dL (10.7-15.3); LYMPH % 29.3 % (8-40); MCH 31.8 pg (25.7-33.7); MCHC 33.6 g/dl (32.0-36.0); MEAN CELL VOLUME 94.5 fl (80-96); MEAN PLT VOLUME 8.8 fl (7.5-11.1); MONO % 15.4 % (3.8-10.2); NEUT % 50.8 % (42.8-82.8); PLATELET COUNT 284 10^3/uL (134-434); RBC 3.23 M/mm3 (3.60-5.2); RDW 12.4 % (11.6-15.6)
[2022-11-07 09:12] LABS: CALCIUM 9.1 mg/dL (8.5-10.1)
[2022-11-07 09:13] LABS: ALBUMIN 2.7 g/dl (3.4-5.0); BLOOD UREA NITROGEN 42.4 mg/dL (7-18); MAGNESIUM 2.3 mg/dL (1.8-2.4)
[2022-11-07 09:16] LABS: CREATININE 1.1 mg/dL (0.55-1.3)
[2022-11-07 09:17] LABS: BILIRUBIN,TOTAL 0.4 mg/dL (0.2-1)
[2022-11-07] MEDS: DOCUSATE SODIUM 100 MG CAPSULE (FP) PO SCH (09:51)
[2022-11-07] MEDS: AMINO ACIDS/PROTEIN HYDROLYS 30 ML LIQUID.PKT PO SCH ×2 (09:52→17:23)
[2022-11-07] MEDS: amLODIPine BESYLATE 10 MG TABLET (FP) PO SCH (09:52)
[2022-11-07] MEDS: cloNIDine HCL 0.1 MG TABLET PO SCH (09:52)
[2022-11-07] MEDS: FOLIC ACID 1 MG TABLET (FP) PO SCH (09:52)
[2022-11-07] MEDS: THIAMINE HCL 100 MG TABLET (FP) PO SCH (09:52)
[2022-11-07] MEDS ORDERED: FUROSEMIDE 40 MG TABLET (FP) PO SCH (10:00)
[2022-11-07 14:38] VITALS: BP 122/76; PULSE 82; TEMP 98.5
[2022-11-07] MEDS ORDERED: SODIUM ZIRCONIUM CYCLOSILICATE (LOKELMA) 5 GM PACKET PO SCH (17:15)
== END 2022-11-07 18:14 | disposition other institution (70) | DRG 139 ==
LOC: JER 17:24 → JERBED 19:11 → J6S 10-30 00:27 → J4W 10-30 03:39 → J7W 10-30 12:05 → JICU 11-01 17:59 → J8W 11-02 12:02
PROVIDERS: ADMIT Internal Medicine; ATTEND Nurse Practitioner Family
DX: J18.9 Pneumonia, unspecified organism (principal); J96.01 Acute respiratory failure with hypoxia; I50.33 Acute on chronic diastolic (congestive) heart failure; E46 Unspecified protein-calorie malnutrition; N17.9 Acute kidney failure, unspecified; F14.20 Cocaine dependence, uncomplicated; A53.0 Latent syphilis, unspecified as early or late; E87.5 Hyperkalemia; I36.1 Nonrheumatic tricuspid (valve) insufficiency; I13.0 Hypertensive heart and chronic kidney disease with heart failure and stage 1 through stage 4 chronic kidney disease, or unspecified chronic kidney disease; F41.9 Anxiety disorder, unspecified; F32.A Depression, unspecified; Z86.73 Personal history of transient ischemic attack (TIA), and cerebral infarction without residual deficits; F11.10 Opioid abuse, uncomplicated; I16.1 Hypertensive emergency; F39 Unspecified mood [affective] disorder; N18.31 Chronic kidney disease, stage 3a; F10.20 Alcohol dependence, uncomplicated; F17.210 Nicotine dependence, cigarettes, uncomplicated; Z68.1 Body mass index [BMI] 19.9 or less, adult; B19.20 Unspecified viral hepatitis C without hepatic coma; Z91.51 Personal history of suicidal behavior
CPT/HCPCS: 0241U-QW; 36415; 70450-TC; 71045-TC-FY; 71275-TC; 76775-TC; 80053; 80061; 80307; 81003; 82436; 82553; 82570; 82803; 83036; 83605; 83735; 83880; 84100; 84133; 84300; 84443; 84484; 84540; 85025; 85027; 85610; 85730; 86704; 86780; 86803; 86850; 86900; 86901; 87040; 87086; 87186; 87340; 87517; 87522; 87899; 93005; 93010; 93306-TC; 94640; 97116-GP; 97161-GP; 99285-25; J1644

== ENCOUNTER 2022-11-07 19:00 | Inpatient (IN) | payer OTHER ==
[2022-11-07 21:01] VITALS: BMI 19.1
[2022-11-07] MEDS ORDERED: LOPERAMIDE HCL 2 MG CAPSULE PO PRN (23:03)
[2022-11-07] MEDS ORDERED: NICOTINE POLACRILEX 2 MG GUM BUC PRN (23:03)
[2022-11-07] MEDS ORDERED: guaiFENesin 200 MG/10 ML 10 ML UNIT-DOSE CUPS PO PRN (23:03)
[2022-11-07] MEDS ORDERED: POLYETHYLENE GLYCOL (HEALTHYLAX) 3350 17 GM PACKET PO PRN (23:03)
[2022-11-07] MEDS ORDERED: MAG HYDROX/AL HYDROX/SIMETH 30 ML UNIT-DOSE CUP PO PRN (23:03)
[2022-11-07] MEDS ORDERED: BENZOCAINE/MENTHOL (CHLORASEPTIC ) LOZENGE MM PRN (23:03)
[2022-11-07] MEDS ORDERED: MAGNESIUM HYDROX 2400MG/30ML ORAL SUSPENSION 30 ML CUP PO PRN (23:03)
[2022-11-07] MEDS ORDERED: P-EPHED 60MG/TRIPROLIDI 2.5MG TABLET PO PRN (23:03)
[2022-11-08] MEDS: MELATONIN 5 MG TABLETS PO SCH ×2 (01:07→22:06)
[2022-11-08] MEDS ORDERED: hydrOXYzine PAMOATE 25 MG CAPSULE (FP) PO ONE (01:08)
[2022-11-08] MEDS: hydrOXYzine PAMOATE 25 MG CAPSULE (FP) PO PRN ×2 (01:12→06:33)
[2022-11-08] MEDS: PRENATAL VITAMINS W/ FOLIC ACID TABLET (FP) PO SCH (10:41)
[2022-11-08] MEDS: NICOTINE 14 MG/24 HOURS TOPICAL PATCH TD SCH (10:41)
[2022-11-08] MEDS ORDERED: ALBUTEROL SO4 2.5/IPRATROPIUM 0.5 INH SOL 3 ML VIAL.NEB. NEB PRN (11:45)
[2022-11-08 12:12] LABS: HIV INTERPRETATION NEGATIVE (NEGATIVE)
[2022-11-08] MEDS: amLODIPine BESYLATE 10 MG TABLET (FP) PO SCH (12:15)
[2022-11-08] MEDS: NICOTINE 10 MG CARTRIDGE (INHALER) IH PRN (12:16)
[2022-11-08] MEDS: THIAMINE HCL 100 MG TABLET (FP) PO SCH (22:06)
[2022-11-09] MEDS: ACETAMINOPHEN 325 MG TABLET (FP) PO PRN (06:52)
[2022-11-09] MEDS: hydrOXYzine PAMOATE 25 MG CAPSULE (FP) PO PRN ×2 (06:53→21:51)
[2022-11-09] MEDS: PRENATAL VITAMINS W/ FOLIC ACID TABLET (FP) PO SCH (10:10)
[2022-11-09] MEDS: NICOTINE 14 MG/24 HOURS TOPICAL PATCH TD SCH (10:10)
[2022-11-09] MEDS: amLODIPine BESYLATE 10 MG TABLET (FP) PO SCH (10:11)
[2022-11-09] MEDS: FUROSEMIDE 40 MG TABLET (FP) PO SCH (10:11)
[2022-11-09] MEDS: NICOTINE 10 MG CARTRIDGE (INHALER) IH PRN (10:11)
[2022-11-09] MEDS: MELATONIN 5 MG TABLETS PO SCH (21:50)
[2022-11-09] MEDS: THIAMINE HCL 100 MG TABLET (FP) PO SCH (21:50)
[2022-11-10] MEDS: FUROSEMIDE 40 MG TABLET (FP) PO SCH (10:23)
[2022-11-10] MEDS: NICOTINE 14 MG/24 HOURS TOPICAL PATCH TD SCH (10:23)
[2022-11-10] MEDS: PRENATAL VITAMINS W/ FOLIC ACID TABLET (FP) PO SCH (10:23)
[2022-11-10] MEDS: amLODIPine BESYLATE 10 MG TABLET (FP) PO SCH (10:23)
[2022-11-10] MEDS: NICOTINE 10 MG CARTRIDGE (INHALER) IH PRN (10:24)
[2022-11-10] MEDS: hydrOXYzine PAMOATE 25 MG CAPSULE (FP) PO PRN (10:26)
[2022-11-10] MEDS ORDERED: cloNIDine HCL 0.1 MG TABLET PO ONE (17:31)
[2022-11-10] MEDS: IBUPROFEN 400 MG TABLET (FP) PO PRN (17:40)
[2022-11-10] MEDS: MELATONIN 5 MG TABLETS PO SCH (22:46)
[2022-11-10] MEDS: THIAMINE HCL 100 MG TABLET (FP) PO SCH (22:46)
[2022-11-11] MEDS: FUROSEMIDE 40 MG TABLET (FP) PO SCH (10:24)
[2022-11-11] MEDS: amLODIPine BESYLATE 10 MG TABLET (FP) PO SCH (10:24)
[2022-11-11] MEDS: PRENATAL VITAMINS W/ FOLIC ACID TABLET (FP) PO SCH (10:24)
[2022-11-11] MEDS: NICOTINE 14 MG/24 HOURS TOPICAL PATCH TD SCH (10:25)
[2022-11-11] MEDS: hydrOXYzine PAMOATE 25 MG CAPSULE (FP) PO PRN ×2 (10:25→18:53)
[2022-11-11] MEDS: THIAMINE HCL 100 MG TABLET (FP) PO SCH (21:46)
[2022-11-11] MEDS: MELATONIN 5 MG TABLETS PO SCH (21:46)
[2022-11-12] MEDS ORDERED: PENICILLIN G BENZATHINE 2,400,000 UNIT/4 ML PFS IM SCH (10:00)
[2022-11-12] MEDS: amLODIPine BESYLATE 10 MG TABLET (FP) PO SCH (10:13)
[2022-11-12] MEDS: FUROSEMIDE 40 MG TABLET (FP) PO SCH (10:13)
[2022-11-12] MEDS: PRENATAL VITAMINS W/ FOLIC ACID TABLET (FP) PO SCH (10:13)
[2022-11-12] MEDS: ACETAMINOPHEN 325 MG TABLET (FP) PO PRN (10:13)
[2022-11-12] MEDS: hydrOXYzine PAMOATE 25 MG CAPSULE (FP) PO PRN ×2 (10:14→21:22)
[2022-11-12] MEDS: NICOTINE 14 MG/24 HOURS TOPICAL PATCH TD SCH (10:15)
[2022-11-12] MEDS: MELATONIN 5 MG TABLETS PO SCH (21:22)
[2022-11-12] MEDS: QUEtiapine FUMARATE 50 MG TABLET PO SCH (21:23)
[2022-11-12] MEDS: THIAMINE HCL 100 MG TABLET (FP) PO SCH (21:23)
[2022-11-12] MEDS: NICOTINE 10 MG CARTRIDGE (INHALER) IH PRN (21:24)
[2022-11-13] MEDS: cloNIDine HCL 0.1 MG TABLET PO PRN (06:54)
[2022-11-13] MEDS: IBUPROFEN 400 MG TABLET (FP) PO PRN (06:54)
[2022-11-13] MEDS ORDERED: FLUoxetine HCL 10 MG TABLET PO SCH (10:00)
[2022-11-13] MEDS: PRENATAL VITAMINS W/ FOLIC ACID TABLET (FP) PO SCH (10:14)
[2022-11-13] MEDS: FLUoxetine HCL 10 MG CAPSULE PO SCH (10:14)
[2022-11-13] MEDS: amLODIPine BESYLATE 10 MG TABLET (FP) PO SCH (10:14)
[2022-11-13] MEDS: FUROSEMIDE 40 MG TABLET (FP) PO SCH (10:14)
[2022-11-13] MEDS: NICOTINE 14 MG/24 HOURS TOPICAL PATCH TD SCH (10:15)
[2022-11-13] MEDS: hydrOXYzine PAMOATE 25 MG CAPSULE (FP) PO PRN (10:16)
[2022-11-13 11:51] LABS: BASO % 0.7 % (0-2.0); EOS % 3.3 % (0-4.5); HEMATOCRIT 30.8 % (32.4-45.2); HEMOGLOBIN 10.5 GM/dL (10.7-15.3); LYMPH % 32.9 % (8-40); MCH 31.7 pg (25.7-33.7); MCHC 34.1 g/dl (32.0-36.0); MEAN CELL VOLUME 92.9 fl (80-96); MEAN PLT VOLUME 8.5 fl (7.5-11.1); MONO % 10.5 % (3.8-10.2); NEUT % 52.6 % (42.8-82.8); PLATELET COUNT 337 10^3/uL (134-434); RBC 3.31 M/mm3 (3.60-5.2); RDW 12.4 % (11.6-15.6); WHITE BLOOD COUNT 4.5 K/mm3 (4.0-10.0)
[2022-11-13 12:03] LABS: ALBUMIN 2.9 g/dl (3.4-5.0); BLOOD UREA NITROGEN 32.7 mg/dL (7-18)
[2022-11-13 12:06] LABS: BILIRUBIN,TOTAL 0.3 mg/dL (0.2-1); TOT PROT 6.8 g/dl (6.4-8.2)
[2022-11-13] MEDS: QUEtiapine FUMARATE 50 MG TABLET PO SCH (21:59)
[2022-11-13] MEDS: THIAMINE HCL 100 MG TABLET (FP) PO SCH (21:59)
[2022-11-13] MEDS: MELATONIN 5 MG TABLETS PO SCH (21:59)
[2022-11-14] MEDS: PRENATAL VITAMINS W/ FOLIC ACID TABLET (FP) PO SCH (09:52)
[2022-11-14] MEDS: NICOTINE 14 MG/24 HOURS TOPICAL PATCH TD SCH (09:52)
[2022-11-14] MEDS: FUROSEMIDE 40 MG TABLET (FP) PO SCH (09:52)
[2022-11-14] MEDS: amLODIPine BESYLATE 10 MG TABLET (FP) PO SCH (09:52)
[2022-11-14] MEDS: FLUoxetine HCL 10 MG CAPSULE PO SCH (09:53)
[2022-11-14] MEDS: hydrOXYzine PAMOATE 25 MG CAPSULE (FP) PO PRN (09:54)
[2022-11-14] MEDS: MELATONIN 5 MG TABLETS PO SCH (21:44)
[2022-11-14] MEDS: THIAMINE HCL 100 MG TABLET (FP) PO SCH (21:44)
[2022-11-14] MEDS: QUEtiapine FUMARATE 50 MG TABLET PO SCH (21:44)
[2022-11-15] MEDS: hydrOXYzine PAMOATE 25 MG CAPSULE (FP) PO PRN (06:12)
[2022-11-15] MEDS: cloNIDine HCL 0.1 MG TABLET PO PRN (06:12)
[2022-11-15] MEDS: FUROSEMIDE 40 MG TABLET (FP) PO SCH (09:54)
[2022-11-15] MEDS: NICOTINE 14 MG/24 HOURS TOPICAL PATCH TD SCH (09:54)
[2022-11-15] MEDS: PRENATAL VITAMINS W/ FOLIC ACID TABLET (FP) PO SCH (09:54)
[2022-11-15] MEDS: amLODIPine BESYLATE 10 MG TABLET (FP) PO SCH (09:54)
[2022-11-15] MEDS: FLUoxetine HCL 10 MG CAPSULE PO SCH (09:55)
[2022-11-15] MEDS: ACETAMINOPHEN 325 MG TABLET (FP) PO PRN (09:56)
[2022-11-15] MEDS: NICOTINE 10 MG CARTRIDGE (INHALER) IH PRN (10:43)
[2022-11-15] MEDS: MELATONIN 5 MG TABLETS PO SCH (22:15)
[2022-11-15] MEDS: THIAMINE HCL 100 MG TABLET (FP) PO SCH (22:16)
[2022-11-15] MEDS: QUEtiapine FUMARATE 50 MG TABLET PO SCH (22:16)
[2022-11-16] MEDS: amLODIPine BESYLATE 10 MG TABLET (FP) PO SCH (09:58)
[2022-11-16] MEDS: PRENATAL VITAMINS W/ FOLIC ACID TABLET (FP) PO SCH (09:58)
[2022-11-16] MEDS: FUROSEMIDE 40 MG TABLET (FP) PO SCH (09:58)
[2022-11-16] MEDS: FLUoxetine HCL 10 MG CAPSULE PO SCH (09:59)
[2022-11-16] MEDS: NICOTINE 14 MG/24 HOURS TOPICAL PATCH TD SCH (09:59)
[2022-11-16] MEDS: ACETAMINOPHEN 325 MG TABLET (FP) PO PRN (10:00)
[2022-11-16] MEDS: NICOTINE 10 MG CARTRIDGE (INHALER) IH PRN (10:07)
[2022-11-16] MEDS: cloNIDine HCL 0.1 MG TABLET PO PRN (21:25)
[2022-11-16] MEDS: QUEtiapine FUMARATE 50 MG TABLET PO SCH (21:25)
[2022-11-16] MEDS: MELATONIN 5 MG TABLETS PO SCH (21:25)
[2022-11-16] MEDS: THIAMINE HCL 100 MG TABLET (FP) PO SCH (21:25)
[2022-11-17] MEDS: cloNIDine HCL 0.1 MG TABLET PO PRN (06:50)
[2022-11-17] MEDS ORDERED: FUROSEMIDE 40 MG TABLET (FP) PO SCH (10:00)
[2022-11-17] MEDS ORDERED: amLODIPine BESYLATE 10 MG TABLET (FP) PO SCH (10:00)
[2022-11-17] MEDS: PRENATAL VITAMINS W/ FOLIC ACID TABLET (FP) PO SCH (10:04)
[2022-11-17] MEDS: FLUoxetine HCL 10 MG CAPSULE PO SCH (10:05)
[2022-11-17] MEDS: NICOTINE 14 MG/24 HOURS TOPICAL PATCH TD SCH (10:05)
[2022-11-17] MEDS: NICOTINE 10 MG CARTRIDGE (INHALER) IH PRN (13:05)
[2022-11-17] MEDS: THIAMINE HCL 100 MG TABLET (FP) PO SCH (21:46)
[2022-11-17] MEDS: QUEtiapine FUMARATE 50 MG TABLET PO SCH (21:46)
[2022-11-17] MEDS: MELATONIN 5 MG TABLETS PO SCH (21:46)
[2022-11-17] MEDS: hydrOXYzine PAMOATE 25 MG CAPSULE (FP) PO PRN (21:47)
[2022-11-18] MEDS: FUROSEMIDE 40 MG TABLET (FP) PO SCH (06:19)
[2022-11-18] MEDS: amLODIPine BESYLATE 10 MG TABLET (FP) PO SCH (06:19)
[2022-11-18] MEDS: cloNIDine HCL 0.1 MG TABLET PO PRN (06:19)
[2022-11-18] MEDS: FLUoxetine HCL 10 MG CAPSULE PO SCH (10:31)
[2022-11-18] MEDS: PRENATAL VITAMINS W/ FOLIC ACID TABLET (FP) PO SCH (10:32)
[2022-11-18] MEDS: NICOTINE 14 MG/24 HOURS TOPICAL PATCH TD SCH (10:32)
[2022-11-18] MEDS: hydrOXYzine PAMOATE 25 MG CAPSULE (FP) PO PRN ×2 (10:33→21:30)
[2022-11-18] MEDS: NICOTINE 10 MG CARTRIDGE (INHALER) IH PRN (20:05)
[2022-11-18] MEDS: MELATONIN 5 MG TABLETS PO SCH (21:30)
[2022-11-18] MEDS: QUEtiapine FUMARATE 50 MG TABLET PO SCH (21:31)
[2022-11-18] MEDS: THIAMINE HCL 100 MG TABLET (FP) PO SCH (21:31)
[2022-11-19] MEDS: FUROSEMIDE 40 MG TABLET (FP) PO SCH (05:54)
[2022-11-19] MEDS: amLODIPine BESYLATE 10 MG TABLET (FP) PO SCH (05:54)
[2022-11-19] MEDS: NICOTINE 10 MG CARTRIDGE (INHALER) IH PRN ×2 (05:56→10:08)
[2022-11-19] MEDS: PRENATAL VITAMINS W/ FOLIC ACID TABLET (FP) PO SCH (10:06)
[2022-11-19] MEDS: FLUoxetine HCL 10 MG CAPSULE PO SCH (10:06)
[2022-11-19] MEDS: NICOTINE 14 MG/24 HOURS TOPICAL PATCH TD SCH (10:06)
[2022-11-19] MEDS: hydrOXYzine PAMOATE 25 MG CAPSULE (FP) PO PRN ×2 (10:07→22:02)
[2022-11-19] MEDS: THIAMINE HCL 100 MG TABLET (FP) PO SCH (22:01)
[2022-11-19] MEDS: QUEtiapine FUMARATE 50 MG TABLET PO SCH (22:02)
[2022-11-19] MEDS: MELATONIN 5 MG TABLETS PO SCH (22:03)
[2022-11-20] MEDS: amLODIPine BESYLATE 10 MG TABLET (FP) PO SCH (06:39)
[2022-11-20] MEDS: FUROSEMIDE 40 MG TABLET (FP) PO SCH (06:39)
[2022-11-20] MEDS: NICOTINE 14 MG/24 HOURS TOPICAL PATCH TD SCH (10:49)
[2022-11-20] MEDS: PRENATAL VITAMINS W/ FOLIC ACID TABLET (FP) PO SCH (10:49)
[2022-11-20] MEDS: FLUoxetine HCL 10 MG CAPSULE PO SCH (10:49)
[2022-11-20] MEDS: QUEtiapine FUMARATE 50 MG TABLET PO SCH (21:51)
[2022-11-20] MEDS: hydrOXYzine PAMOATE 25 MG CAPSULE (FP) PO PRN (21:51)
[2022-11-20] MEDS: MELATONIN 5 MG TABLETS PO SCH (21:51)
[2022-11-20] MEDS: THIAMINE HCL 100 MG TABLET (FP) PO SCH (21:51)
[2022-11-20] MEDS: IBUPROFEN 400 MG TABLET (FP) PO PRN (21:53)
[2022-11-21] MEDS: FUROSEMIDE 40 MG TABLET (FP) PO SCH (06:29)
[2022-11-21] MEDS: amLODIPine BESYLATE 10 MG TABLET (FP) PO SCH (06:29)
[2022-11-21] MEDS: hydrOXYzine PAMOATE 25 MG CAPSULE (FP) PO PRN ×2 (06:30→21:10)
[2022-11-21] MEDS: NICOTINE 14 MG/24 HOURS TOPICAL PATCH TD SCH (09:50)
[2022-11-21] MEDS: PRENATAL VITAMINS W/ FOLIC ACID TABLET (FP) PO SCH (09:50)
[2022-11-21] MEDS: FLUoxetine HCL 10 MG CAPSULE PO SCH (09:51)
[2022-11-21] MEDS: NICOTINE 10 MG CARTRIDGE (INHALER) IH PRN (16:47)
[2022-11-21] MEDS: MELATONIN 5 MG TABLETS PO SCH (21:08)
[2022-11-21] MEDS: QUEtiapine FUMARATE 50 MG TABLET PO SCH (21:08)
[2022-11-21] MEDS: THIAMINE HCL 100 MG TABLET (FP) PO SCH (21:08)
[2022-11-21] MEDS: IBUPROFEN 400 MG TABLET (FP) PO PRN (21:09)
[2022-11-22] MEDS: FUROSEMIDE 40 MG TABLET (FP) PO SCH (06:40)
[2022-11-22] MEDS: hydrOXYzine PAMOATE 25 MG CAPSULE (FP) PO PRN ×2 (06:41→21:46)
[2022-11-22] MEDS: amLODIPine BESYLATE 10 MG TABLET (FP) PO SCH (06:41)
[2022-11-22] MEDS: PRENATAL VITAMINS W/ FOLIC ACID TABLET (FP) PO SCH (10:32)
[2022-11-22] MEDS: NICOTINE 14 MG/24 HOURS TOPICAL PATCH TD SCH (10:33)
[2022-11-22] MEDS: FLUoxetine HCL 10 MG CAPSULE PO SCH (10:33)
[2022-11-22] MEDS: NICOTINE 10 MG CARTRIDGE (INHALER) IH PRN (10:34)
[2022-11-22] MEDS: THIAMINE HCL 100 MG TABLET (FP) PO SCH (21:46)
[2022-11-22] MEDS: MELATONIN 5 MG TABLETS PO SCH (21:46)
[2022-11-22] MEDS: QUEtiapine FUMARATE 50 MG TABLET PO SCH (21:46)
[2022-11-22] MEDS: IBUPROFEN 400 MG TABLET (FP) PO PRN (21:47)
[2022-11-23] MEDS: amLODIPine BESYLATE 10 MG TABLET (FP) PO SCH (06:49)
[2022-11-23] MEDS: FUROSEMIDE 40 MG TABLET (FP) PO SCH (06:49)
[2022-11-23] MEDS: hydrOXYzine PAMOATE 25 MG CAPSULE (FP) PO PRN ×2 (06:50→21:20)
[2022-11-23] MEDS: NICOTINE 14 MG/24 HOURS TOPICAL PATCH TD SCH (09:50)
[2022-11-23] MEDS: PRENATAL VITAMINS W/ FOLIC ACID TABLET (FP) PO SCH (09:50)
[2022-11-23] MEDS: FLUoxetine HCL 10 MG CAPSULE PO SCH (09:50)
[2022-11-23] MEDS: NICOTINE 10 MG CARTRIDGE (INHALER) IH PRN (09:51)
[2022-11-23] MEDS: THIAMINE HCL 100 MG TABLET (FP) PO SCH (21:20)
[2022-11-23] MEDS: IBUPROFEN 400 MG TABLET (FP) PO PRN (21:20)
[2022-11-23] MEDS: MELATONIN 5 MG TABLETS PO SCH (21:20)
[2022-11-23] MEDS: QUEtiapine FUMARATE 50 MG TABLET PO SCH (21:20)
[2022-11-24] MEDS: amLODIPine BESYLATE 10 MG TABLET (FP) PO SCH (06:11)
[2022-11-24] MEDS: FUROSEMIDE 40 MG TABLET (FP) PO SCH (06:11)
[2022-11-24] MEDS: hydrOXYzine PAMOATE 25 MG CAPSULE (FP) PO PRN ×2 (06:12→21:33)
[2022-11-24] MEDS: NICOTINE 10 MG CARTRIDGE (INHALER) IH PRN (06:14)
[2022-11-24 07:15] VITALS: RESP 16
[2022-11-24] MEDS: PRENATAL VITAMINS W/ FOLIC ACID TABLET (FP) PO SCH (10:12)
[2022-11-24] MEDS: FLUoxetine HCL 10 MG CAPSULE PO SCH (10:12)
[2022-11-24] MEDS: NICOTINE 14 MG/24 HOURS TOPICAL PATCH TD SCH (10:12)
[2022-11-24] MEDS: QUEtiapine FUMARATE 50 MG TABLET PO SCH (21:33)
[2022-11-24] MEDS: THIAMINE HCL 100 MG TABLET (FP) PO SCH (21:33)
[2022-11-24] MEDS: MELATONIN 5 MG TABLETS PO SCH (21:33)
[2022-11-24] MEDS: IBUPROFEN 400 MG TABLET (FP) PO PRN (21:35)
[2022-11-25] MEDS: amLODIPine BESYLATE 10 MG TABLET (FP) PO SCH (06:41)
[2022-11-25] MEDS: FUROSEMIDE 40 MG TABLET (FP) PO SCH (06:41)
[2022-11-25] MEDS: hydrOXYzine PAMOATE 25 MG CAPSULE (FP) PO PRN ×3 (06:41→21:25)
[2022-11-25] MEDS: NICOTINE 10 MG CARTRIDGE (INHALER) IH PRN (06:55)
[2022-11-25] MEDS: FLUoxetine HCL 10 MG CAPSULE PO SCH (10:01)
[2022-11-25] MEDS: PRENATAL VITAMINS W/ FOLIC ACID TABLET (FP) PO SCH (10:01)
[2022-11-25] MEDS: NICOTINE 14 MG/24 HOURS TOPICAL PATCH TD SCH (10:02)
[2022-11-25] MEDS: IBUPROFEN 400 MG TABLET (FP) PO PRN (21:25)
[2022-11-25] MEDS: MELATONIN 5 MG TABLETS PO SCH (21:25)
[2022-11-25] MEDS: THIAMINE HCL 100 MG TABLET (FP) PO SCH (21:25)
[2022-11-25] MEDS: QUEtiapine FUMARATE 100 MG TABLET (FP) PO SCH (21:26)
[2022-11-26] MEDS: amLODIPine BESYLATE 10 MG TABLET (FP) PO SCH (06:38)
[2022-11-26] MEDS: FUROSEMIDE 40 MG TABLET (FP) PO SCH (06:38)
[2022-11-26] MEDS: hydrOXYzine PAMOATE 25 MG CAPSULE (FP) PO PRN ×2 (06:38→21:43)
[2022-11-26] MEDS: PRENATAL VITAMINS W/ FOLIC ACID TABLET (FP) PO SCH (10:04)
[2022-11-26] MEDS: NICOTINE 14 MG/24 HOURS TOPICAL PATCH TD SCH (10:04)
[2022-11-26] MEDS: FLUoxetine HCL 10 MG CAPSULE PO SCH (10:05)
[2022-11-26] MEDS: NICOTINE 10 MG CARTRIDGE (INHALER) IH PRN ×2 (10:05→18:03)
[2022-11-26] MEDS: THIAMINE HCL 100 MG TABLET (FP) PO SCH (21:43)
[2022-11-26] MEDS: QUEtiapine FUMARATE 100 MG TABLET (FP) PO SCH (21:43)
[2022-11-26] MEDS: MELATONIN 5 MG TABLETS PO SCH (21:43)
[2022-11-26] MEDS: IBUPROFEN 400 MG TABLET (FP) PO PRN (21:44)
[2022-11-27] MEDS: amLODIPine BESYLATE 10 MG TABLET (FP) PO SCH (06:28)
[2022-11-27] MEDS: FUROSEMIDE 40 MG TABLET (FP) PO SCH (06:28)
[2022-11-27] MEDS: hydrOXYzine PAMOATE 25 MG CAPSULE (FP) PO PRN ×2 (06:28→21:25)
[2022-11-27] MEDS: PRENATAL VITAMINS W/ FOLIC ACID TABLET (FP) PO SCH (09:58)
[2022-11-27] MEDS: NICOTINE 14 MG/24 HOURS TOPICAL PATCH TD SCH (09:58)
[2022-11-27] MEDS: FLUoxetine HCL 10 MG CAPSULE PO SCH (09:58)
[2022-11-27] MEDS: THIAMINE HCL 100 MG TABLET (FP) PO SCH (21:24)
[2022-11-27] MEDS: MELATONIN 5 MG TABLETS PO SCH (21:24)
[2022-11-27] MEDS: QUEtiapine FUMARATE 100 MG TABLET (FP) PO SCH (21:24)
[2022-11-27] MEDS: IBUPROFEN 400 MG TABLET (FP) PO PRN (21:29)
[2022-11-27] MEDS: NICOTINE 10 MG CARTRIDGE (INHALER) IH PRN (21:30)
[2022-11-28] MEDS: FUROSEMIDE 40 MG TABLET (FP) PO SCH (06:09)
[2022-11-28] MEDS: hydrOXYzine PAMOATE 25 MG CAPSULE (FP) PO PRN (06:09)
[2022-11-28] MEDS: amLODIPine BESYLATE 10 MG TABLET (FP) PO SCH (06:09)
[2022-11-28 06:54] VITALS: TEMP 96.7
[2022-11-28] MEDS: FLUoxetine HCL 10 MG CAPSULE PO SCH (09:13)
[2022-11-28] MEDS: PRENATAL VITAMINS W/ FOLIC ACID TABLET (FP) PO SCH (09:13)
[2022-11-28] MEDS: NICOTINE 14 MG/24 HOURS TOPICAL PATCH TD SCH (09:15)
[2022-11-28 11:27] VITALS: BP 140/80; PULSE 88
== END 2022-11-28 09:40 | disposition home or self-care (01) | DRG 772 ==
LOC: YASAS 19:00 → Y5N 23:47
PROVIDERS: ADMIT Allergy & Immunology; ATTEND Psychiatry & Neurology Pain Medicine
PROC: HZ42ZZZ Group Counseling for Substance Abuse Treatment, Cognitive-Behavioral (ICD-10-PCS; principal; 2022-11-07)
DX: F11.20 Opioid dependence, uncomplicated (principal); F10.20 Alcohol dependence, uncomplicated; F14.20 Cocaine dependence, uncomplicated; F17.210 Nicotine dependence, cigarettes, uncomplicated; F19.24 Other psychoactive substance dependence with psychoactive substance-induced mood disorder; F41.9 Anxiety disorder, unspecified; F32.A Depression, unspecified; D64.9 Anemia, unspecified; I10 Essential (primary) hypertension; B18.2 Chronic viral hepatitis C; R76.8 Other specified abnormal immunological findings in serum; I69.854 Hemiplegia and hemiparesis following other cerebrovascular disease affecting left non-dominant side; Z87.01 Personal history of pneumonia (recurrent)
CPT/HCPCS: 36415; 80053; 85025; 86803; 87389; 87522; C9803-CS; U0003; U0005